=== PATIENT | female | born 1975 | race Caucasian/White ===

== ENCOUNTER 2016-09-30 02:48 | Emergency (ER) | payer OTHER ==
--- NOTE | ~2016-09-30 | ER ---
PATIENT'S NAME: KIRSTY WALTON [facility] AGE: 40 Y [address] ROOM: [place] [address] LOCATION: [facility] ADMIT DATE: 09/30/2016 ER/Outpatient Report DISCHARGE DATE: 09/30/2016 FAMILY PHYSICIAN: PHYSICIAN, NO ATTENDING PHYSICIAN: Garfield Loyd Admission date and time documented on the medical record. I saw the patient 0305 hours. CHIEF COMPLAINT: Headache. HISTORY OF PRESENT ILLNESS: The patient is a 40-year-old female, who has had a headache that started yesterday at 0200 hours. She does not have any history of headaches. She tried tramadol, Tylenol, and ibuprofen without improvement. Pain increases with movement, especially going up and down stairs. Basically, on the top of her frontal and on the top of her head. No nausea, vomiting, diarrhea, or urinary symptoms. No photophobia, no lightheadedness, dizziness, syncope, or near syncope. No fall or trauma. No recent colds, coughs, flus, fever, chills, or sweats. No eyes, ears, nose, throat, neck, or spine pain. No chest pain, shortness of breath, no abdominal pain. No history of headaches or any other neuro problems. No psych issues. No endocrine problems. HOME MEDICATIONS: See attached medication list. ALLERGIES: MORPHINE, LEXAPRO. SOCIAL HISTORY: Nonsmoker, occasional intake of alcohol. SIGNIFICANT PAST MEDICAL HISTORY: DVT in her arm, otherwise negative. OPERATIONS: Breast biopsy. Uterine fibroid removal. Rib removal. REVIEW OF SYSTEMS: All systems reviewed by me are negative with the exception of those discussed in the history of present illness. PHYSICAL EXAMINATION: VITAL SIGNS: Temperature 98, pulse 96, respirations 16, blood pressure PATIENT'S NAME: KIRSTY WALTON [facility] AGE: 40 Y [address] ROOM: [place] [address] LOCATION: [facility] ADMIT DATE: 09/30/2016 ER/Outpatient Report DISCHARGE DATE: 09/30/2016 FAMILY PHYSICIAN: PHYSICIAN, NO ATTENDING PHYSICIAN: Garfield Loyd 108/63, O2 saturation on room air is 97%. Casandra Coma Scale is 15. HEAD: Normocephalic. EYES: Extraocular muscles intact. PERRL. Sclerae and conjunctivae are clear and nonicteric. EARS: Clear TMs bilaterally. NOSE: Clear. THROAT: Clear. Mucous membranes are moist. Teeth, jaw intact. NECK: No nuchal rigidity. No thyromegaly or cervical adenopathy. Full range of motion. No tenderness. SPINE: Nontender. No deformity. LUNGS: Clear. Good air flow. No rales, rhonchi, or wheezes. HEART: Regular. Pulses are palpable. ABDOMEN: Soft, nondistended, nontender. Good bowel tones. No organomegaly or abnormal masses palpable. No CVA tenderness. EXTREMITIES: Intact. NEUROVASCULAR: Intact. SKIN: Clear. No skin eruptions or rash. LABORATORY DATA: CT scan of the head with and without contrast was normal. CT scan was read by Radiology, see dictated transcribed report. IMPRESSION: Headache. PLAN: I did give the patient 1 L normal saline IV in the emergency room, Benadryl 50 mg IV in the emergency room followed 10 minutes by Compazine 10 mg and Nubain 5 mg IV. The patient slept and rested for about 2 hours in the emergency department. When she woke up, she was feeling great, dismissed her home. Observation. Activity as tolerated. Continue present home medications and care. Followup with personal physician as needed. Discussion ensued with the patient concerning my findings and recommendations, she understands. GARFIELD LOYD MD SDS/modl /[id number] d: 09/30/16631 t: 09/30/16 1821, OUTPATIENT REPORT
== END 2016-09-30 05:46 | disposition disaster alternative care site (69) ==
LOC: GMED 02:48
DX: R51 Headache (principal); Z86.718 Personal history of other venous thrombosis and embolism; Z88.5 Allergy status to narcotic agent; Z88.8 Allergy status to other drugs, medicaments and biological substances; Z90.89 Acquired absence of other organs; Z98.890 Other specified postprocedural states; Z79.899 Other long term (current) drug therapy
CPT/HCPCS: J0780; J1200; J2300; J7030; Q9967